=== PATIENT | male | born 1995 | race African-American/Black ===

== ENCOUNTER 2016-07-16 06:34 | Observation (INO) | payer OTHER ==
[2016-07-16] VITALS (8 sets, daily range): BP systolic 96–141; BP diastolic 51–70; PULSE 72–106; RESP 13–22; O2SAT 97–100
[~2016-07-16] VITALS: Ht 182.9 cm; Wt 64.9 kg
[~2016-07-16 06:34] MED LIST: KEP500TA PO
--- NOTE | 2016-07-16 07:02 | ED.REPORT ---
HPI-Seizure Date of Service Jul 16, 2016 ED Provider: Doc,Ed MD A 20 year old male with a history of seizures presents to the ED via EMS complaining of seizure onset earlier today. He only remembers waking up in the hospital bed looking up at 2 or 3 doctors and his parents. His last Last seizure was a few months ago. The patient was in a class all day Saturday, went out and had alcoholic drinks with friends Saturday night, and felt hung over on Saturday. He stopped taking his normal anti-seizure medication Lamictal 2 months ago. He does not have a neurologist. His PCP is Corey Keith. Nursing Notes Stated Complaint: SEIZURE Chief Complaint: Seizure Nursing Notes Reviewed: Yes Allergies: Coded Allergies: No Known Allergies (Verified , 07/16/16) Scheduled Levetiracetam (Keppra) 500 Mg Tablet 500 MG PO BID General Time Seen by Provider: 07:09 Chief Complaint Chief Complaint: Seizure, generalized Past Medical History Past Medical History Previous hospitalization for altered mental status History of seizures Family History Noncontributory Smoking History Light Tobacco Smoker Social History Alcohol Use: "Social" Drug Use: Cocaine, THC Other Social History: Good social support, Lives with parents, Local resident Ambulatory Status Independent Review of Systems Review of Systems Note: no recent fever. ETOH sat pm, hungover/headache saturday Complete sys rev & neg: except as marked. Physical Exam Initial Vital Signs Vital Signs (First) Date Time Temp Pulse Resp B/P Pulse Ox O2 Delivery O2 Flow Rate FiO2 07/16/16 06:41 36.7 106 18 141/70 98 Room Air Initial VS: Reviewed Head / Eyes: Atraumatic, Normocephalic, PERRL (midposition) ENT: Mucous membranes moist, Conjunctiva normal Abdomen / GI: Soft, Non-tender, No guarding, No rebound Back: No CVA tenderness Lymphatic: No lymphadenopathy Extremities: Vascular intact, Neuro intact (post ictal and improving rapidly. complaining of headache) Skin: Warm, Dry, No cyanosis Neurologic: Speech NL, No motor deficits, No sensory deficits, CN II - XII intact (hyper reflexic) Mental Status: Positive: Confused (regarding events, clearing during our discussion ) Interpretation & Diagnostics Interpretation & Diagnostics: utox: +THC only Lab Results Interpretation Result Diagram: 07/16/16 0710 07/16/16 0710 Test 07/16/16 07:10 07/16/16 12:15 White Blood Count 10.3th/mm3 (3.8-10.1) Red Blood Count 5.30mil/mm3 (4.40-5.80) Hemoglobin 15.0g/dL (13.8-17.2) Hematocrit 45.6% (41.0-50.0) Mean Corpuscular Volume 86.0fL (81-100) Mean Corpuscular Hemoglobin 28.3pg (27.0-35.0) Mean Corpuscular Hemoglobin Concent 32.9% (32.0-37.0) Red Cell Distribution Width 12.3% (12.3-15.4) Platelet Count 332bil/L (150-400) Neutrophils (%) (Auto) 51.7% (40-74) Lymphocytes (%) (Auto) 39.1% (14-46) Monocytes (%) (Auto) 7.8% (4-12) Eosinophils (%) (Auto) 0.7% (0-5) Basophils (%) (Auto) 0.4% (0-3) Sodium Level 133mEq/L (134-144) Potassium Level 4.1mEq/L (3.5-5.2) Chloride Level 93mEq/L (97-108) Carbon Dioxide Level 14mmol/L (18-29) Blood Urea Nitrogen 16mg/dL (6-20) Creatinine 1.00mg/dL (0.76-1.27) Estimat Glomerular Filtration Rate 100mL/min (>59) Glucose Level 156mg/dL (60-99) Calcium Level 8.9mg/dL (8.5-10.1) Magnesium Level 2.1mg/dL (1.6-2.6) Total Bilirubin 0.3mg/dL (0.0-1.2) Aspartate Amino Transf (AST/SGOT) 29U/L (0-50) Alanine Aminotransferase (ALT/SGPT) 21U/L (0-44) Alkaline Phosphatase 74U/L (25-150) Total Protein 8.0g/dL (6.4-8.4) Albumin 4.8g/dL (3.4-5.0) Urine Color Straw (YELLOW) Urine Appearance Hazy (CLEAR,HAZY) Urine pH 5.5 (5.0-8.0) Urine Specific [place] 1.030 (1.003-1.035) Urine Protein Negativemg/dL (NEG,TRACE) Urine Glucose (UA) Negativemg/dL (NEGATIVE) Urine Ketones Negativemg/dL (NEGATIVE) Urine Occult Blood Trace (NEGATIVE) Urine Nitrite Negative (NEGATIVE) Urine Bilirubin Negative (NEGATIVE) Urine Urobilinogen Normalmg/dL (NORMAL) Urine Leukocyte Esterase Negative (NEGATIVE) Urine RBC 0-2/hpf (0-2) Urine WBC 0-5/hpf (0-5) Urine Epithelial Cells Occasional/hpf (NONE-MOD) Urine Crystals Uric acid crystals (NONE Urine Bacteria Few/hpf (NONE-FEW) Urine Hyaline Casts Occasional/lpf (NONE) Urine Granular Casts Occasional (NONE SEEN) Urine Waxy Casts None seen (NONE SEEN) Urine Red Blood Cell Casts None seen (NONE SEEN) Urine White Blood Cell Casts None seen (NONE SEEN) Urine Mucus Present (None Seen) Urine Trichomonas None seen (NONE SEEN) Urine Yeast None (NONE SEEN) Urinalysis Comment None Urine Culture Reflexed Not indicated Hold Urine Received (Received) Lab Results Interpretation: Brain CT and MRI were unremarkable in March 2016 Re-Eval/Medical Decision Med Decision/Clinical Course 20-year-old gentleman presents with seizure this morning. Last seizure was in March and that admitted to the hospital ICU intubated. He was eventually discharged home on Lamictal. This was to have follow-up EEG scheduled but has not yet heard from neurology clinic. Stopped his seizure medications about 2 months ago. Has been doing well until this morning when he had a repeat seizure. Of note he did have an evening of drinking Saturday night had a slight headache Saturday seizure was Saturday morning. Similar to initial presentation. Second seizure in the emergency department about 2 and half hours after arrival. Second seizure responded nicely to 2 mg of IV Ativan and he was loaded with 1500mg IV Keppra. Admitted to the hospital for additional observation to ensure that he has not have repeat seizures. 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 Talked about importance of avoiding jobs where he could get hurt while having the seizure and likely need for avoiding driving for 6 months after this event Source of Hx: Old records Re-Evaluation/Progress #1: Time of Eval: 09:27 Re-Evaluation/Progress Note: Patient had another seizure which lasted 3 minutes. Seizure was general tonic clonic with eyes deviated upward and to the right. 2 mg of IV Ativan were administered. Patient is somulent. Re-Evaluation/Progress #2: Time of Eval: 12:12 Re-Evaluation/Progress Note: Rechecked patient. Talked with patient's mother who reports that son is recently clean from drug use and is looking for union construction employment. Explained that he will probably need to seek less physically demanding work. Explained diagnosis and plan for [place] [facility] [place] Counseled Regarding: Diagnosis, Lab results, Need for admission Discharge & Departure Impression: Primary Impression: Seizures Disposition: ADMITTED TO HOSPITAL Discharge Condition Condition: Improved Referrals: Pop Enriquez DO (PCP) Crit Care Except Billable Proc Time Spent: 30-74 minutes Services Performed: Patient management by me (including managment of acute seizure), Time spent at bedside, Reviewing test results, Reviewing imaging, Discussing patient care, Documentation in record, Time with fam/surrogate Scribe Attestation Portions of this note were transcribed by Tuan Liu. I, Dr. Cody, personally performed the history, physical exam, and medical decision-making: I reviewed and confirmed the accuracy for the information in the transcribed note. Signed by: antwan Becker, 07/16/16 8700. copies to: Pop Enriquez Shawna L MD Jul 16, 2016 07:02 Tuan Liu Jul 16, 2016 07:09
[2016-07-16 07:14] LABS: BASOPHILS % (AUTO) 0.4 % (0-3); EOSINOPHILS % (AUTO) 0.7 % (0-5); MONOCYTES % (AUTO) 7.8 % (4-12); Mean Corpuscular Hemoglobin 28.3 pg (27.0-35.0); NEUTROPHILS % (AUTO) 51.7 % (40-74); Platelet Count 332 bil/L (150-400)
[2016-07-16] MEDS ORDERED: 0.9% Sodium Chloride 1,000 ML IV ONE (07:55)
[2016-07-16] MEDS ORDERED: Ondansetron 2 mg/mL 2 mL Inj IVPUSH ONE (07:55)
[2016-07-16] MEDS ORDERED: levETIRAcetam Inj 1,500 MG in Dextrose 5% 100 ML IV ONE ×2 (10:05→20:30)
[2016-07-16] MEDS ORDERED: Alum-Mag Hydrox-Simeth 30 mL Suspension PO PRN (13:15)
[2016-07-16] MEDS ORDERED: Ondansetron 2 mg/mL 2 mL Inj IVPUSH PRN (13:15)
[2016-07-16] MEDS ORDERED: Polyethylene Glycol (PEG) 17 Gm Powder PO PRN (13:15)
[2016-07-16 13:58] LABS: COLOR,URINE STRAW (YELLOW)
[2016-07-16 13:59] LABS: APPEARANCE,URINE HAZY (CLEAR,HAZY); OCCULT BLOOD,URINE TRACE (NEGATIVE); PH,URINE 5.5 (5.0-8.0); UROBILINOGEN,URINE NORMAL (NORMAL)
[2016-07-16] MEDS: 0.9% Sodium Chloride 1,000 ML IV SCH ×2 (15:15→23:33)
--- NOTE | 2016-07-16 16:30 | NUR ---
ADMIT Report received from Katie Macdonald RN in ED. Pt brought onto floor via gurney. Unable to transfer - slide to bed. Pt very tired and sleepy from Ativan dosage in ED. Pt oriented to unit, room, and call light. MED REC and multiple interventions completed by Admit nurse. Final interventions completed. IV Fluids started as ordered. Mother at bedside, belongings at bedside or in closet with waiver signed.
--- NOTE | 2016-07-16 16:55 | DRSVH ---
PROCEDURE: CT BRAIN WITHOUT CONTRAST ([id number]) INDICATIONS: seizures TECHNIQUE: Noncontrast 4.5 mm thick angled axial sections acquired from the foramen magnum to the vertex, with c oronal reformats. COMPARISON: [facility], CT, CT BRAIN WO CON, 04/04/2016, 13:42. [facility], CT, BRAIN W/O CONTRAST, 11/19/2012, 9:03. FINDINGS: Image quality: Excellent. CSF spaces: Basal cisterns are patent. No extra-axial fluid collections. Ventricles are normal in size and shape. Brain: No midline shift. No intracranial masses or hemorrhage. Walter-white matter interface is norm al. Skull and face: Calvarium and visualized facial bones are intact, without suspicious lesions. Sinuses: An incompletely visualized right maxillary sinus retention cyst is present. Visualized sinus es and mastoids are otherwise clear. IMPRESSION: No acute intracranial abnormality. No explanation for seizures. Dictated by: Ryan Hall M.D. on 07/16/2016 at 16:52 Approved by: Ryan Hall M.D. on 07/16/2016 at 16:53
--- NOTE | 2016-07-16 17:11 | PCM.HPMED ---
Subjective Date of Service Jul 16, 2016 Primary Provider: Admitting Physician: Danish Chavez DO Primary Care Physician: Pop Enriquez DO Attending Physician: Danish Chavez DO Admit Status: From the Emergency Department, Admit to [facility]hele Team Chief Complaint: "seizure" History of Present Illness: History is primarily provided by the patient's mother, Yina, as patient is somnolent during interview. George Sauceda is a 20-year-old male with history of seizures who presented to the emergency department via EMS for a seizure that started around 6:00 this morning. His mother reports hearing a thump on the floor, and at that point her , the patient's stepfather, went upstairs and found the patient lying on the floor with his whole-body "twitching." He was stuck between the wall and the door. His head was bouncing back and forth between the door and the wall. It lasted for approximately 3 minutes. His parents then called 911. In the emergency department and around 09:27 this morning, he had a witnessed seizure that was described as a general tonic-clonic seizure with eyes deviated upward and to the right. It lasted 3 minutes. 2 mg of IV Ativan were administered. Prior to today, patient's mother reports that his last seizure was in March 2016. She reports that he had imaging of his brain, which was unremarkable. He was started on Keppra 500 mg by mouth twice a day by a physician in his primary care provider's office. It was prescribed in April 2016. His mother reports that he has not been taking it for the past 2 months because the prescription bottle is mostly full and has not been refilled. She states that in April 2016 he had a headache and was anxious and felt like he was going to have a seizure, and on that day, he took the Keppra but did not have a seizure. She states that previously the patient was using cocaine and liquid marijuana during the time of his first seizure. 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 The patient went out drinking alcohol with friends Saturday and Saturday night. On Saturday morning , he woke up with a headache that he described as pounding. He thought that he was hungry over. He vomited once at home and once in the emergency department today. No known sick contacts. He has not been coughing or had diarrhea. Patient denies having any headache or being in any pain currently. He is somnolent and repeatedly falls asleep during interview. Review of Systems: A comprehensive review of systems was limited due to patient currently being somnolent. Allergies Coded Allergies: No Known Allergies (Verified , 07/16/16) Home Medications Keppra 500 mg by mouth twice a day PMH History of seizures Patient is up-to-date on childhood immunizations. Surgical History Left knee injury repair Right fifth and fourth metacarpal fracture repair Family History Father has multiple sclerosis Mother has high blood pressure Paternal grandmother from a brain aneurysm 2 sisters both in good health Social History Hx Alcohol Use: Yes (Occasionally) Hx Substance Use: Yes (Quit marijuana and cocaine 2 months ago) Hx Tobacco Use: Yes Smoking Status: Light Tobacco Smoker (pt's mother reports that he quit) Living Arrangement: with Family Exam Vital Signs Vital Sign - Last Date Time Temp Pulse Resp B/P Pulse Ox O2 Delivery O2 Flow Rate FiO2 07/16/16 15:03 36.4 77 18 112/62 99 Room Air Exam General: Somnolent, no acute distress, well-developed, well-nourished HEENT: Normocephalic, atraumatic. External ears without defect. Pupils equal, round, and reactive to light and accommodation. Anicteric sclerae, moist conjunctivae, and no lid lag. Oropharynx free of erythema and cobble stoning with moist mucosa. Neck: Supple with full range of motion. No jugular venous distension. No bruits. No lymphadenopathy or thyromegaly. Cardiovascular: Regular rate and rhythm with no murmurs, rubs, or gallops appreciated Pulmonary: Clear to auscultation bilaterally with no crackles, wheezes, or rhonchi. Normal respiratory effort with no use of accessory muscles. Abdomen: Bowel tones present. Soft, nontender, nondistended. No hepatosplenomegaly or masses appreciated. Extremities: No clubbing, cyanosis, edema, or lymphadenopathy appreciated. Skin: Normal temperature, turgor, and texture; no rash, ulcers, or subcutaneous nodules appreciated. Neurological: Opens eyes to verbal stimuli, follows commands, moving all 4 extremities equally, no tremor. Psychiatric: Somnolent. Lab and Diagnostics Result Diagram: 07/16/16 0710 07/16/16 0710 X-Rays, CTs and MRIs PROCEDURE: CT BRAIN WITHOUT CONTRAST IMPRESSION: No acute intracranial abnormality. No explanation for seizures. Approved by: Ryan Hall M.D. on 07/16/2016 at 16:53 Assessment & Plan George Sauceda is a 20-year-old male with history of seizures who presented to the emergency department via EMS for a seizure that started around 6:00 this morning 1. Probable seizure disorder, acute on chronic, present on admission. Active. - Previously hospitalized in March 2016 for possible seizure disorder but patient was using cocaine and THC oils at the time. His mother reports that the patient has stopped using THC oils and cocaine since the end of April 2016. EEG in April 2016 showed normal awake and sleep EEG pattern. Patient was started on 500 mg Keppra twice a day. His mother reports poor compliance with this medication, and his prescription bottle is nearly full and has not been refilled since April 2016. WBC elevated likely secondary to recent seizure activity. Patient is afebrile. - Urine tox in the emergency department was positive for THC and negative for cocaine. - Brain CT without contrast shows no acute intracranial hemorrhage. - Discuss patient with Dr. Galan, neurology, and she will try to see him tomorrow in the hospital and she recommended starting patient on 1500 mg Keppra BID and to repeat EEG. Her time and recommendations are appreciated. - Start Keppra 1500 mg IV BID - Repeat EEG ordered for tomorrow morning - Monitor for signs of infection Acetaminophen as needed for pain. Senna and MiraLAX as needed for constipation. Zofran as needed for nausea and vomiting. VTE Prophylaxis: Sub-Q Heparin (Unfractionated), SCDs Resuscitation Status: CPR: Attempt Resuscitation Time spent 45 minutes Attending Statement I have seen and evaluated patient at bedside in addition to directly supervising care provided by resident physician. I agree with above documentation. Alma Basurto DO Jul 16, 2016 16:16 Danish Chavez DO Jul 17, 2016 08:22
[2016-07-16] MEDS: Heparin 5,000 Unit/mL Inj SUBQ SCH (19:56)
[2016-07-16] MEDS ORDERED: levETIRAcetam 500 mg Tablet PO SCH (20:30)
--- NOTE | 2016-07-17 05:03 | NUR ---
Uneventful Pt denies seizure episodes. Keppra administered IV. Denies n/v or abd discomfort. Denies chest pain or sob. Telemetry reports no obvious change in rhythm. Seizure pads per Sz protocol. Hourly rounding done and pt has slept most of the night.
[2016-07-17 05:21] VITALS: BP 112/58; PULSE 78; RESP 18; O2SAT 96
[2016-07-17 06:14] LABS: BASOPHILS % (AUTO) 0.2 % (0-3); EOSINOPHILS % (AUTO) 0.3 % (0-5); Mean Corpuscular Hemoglobin 28.3 pg (27.0-35.0); Mean Corpuscular Volume 85.4 fL (81-100); NEUTROPHILS % (AUTO) 54.6 % (40-74); Platelet Count 253 bil/L (150-400)
[2016-07-17] MEDS: Heparin 5,000 Unit/mL Inj SUBQ SCH (08:30)
[2016-07-17] MEDS ORDERED: levETIRAcetam Inj 1,500 MG in Dextrose 5% 100 ML IV SCH (10:15)
[2016-07-17] MEDS: 0.9% Sodium Chloride 1,000 ML IV SCH (10:28)
[2016-07-17 10:45] VITALS: PULSE 63
--- NOTE | 2016-07-17 12:05 | PROCED ---
[address] [address] EEG PATIENT: GARRET AHUMADA : 1995 MR#: [id number] ADMIT: 07/16/2016 JOB ID: [id number] DATE OF SERVICE: 07/17/2016 REQUESTING PHYSICIAN: Dr. Alma Basurto CLINICAL HISTORY: The patient is a 20-year-old gentleman with history of epilepsy not on antiepileptic medication prior to admission. Now on levetiracetam 1500 mg b.i.d. TECHNICAL DESCRIPTION: This digital EEG was reviewed in bipolar and referential montages following reformatting in the [employer] System. DESCRIPTION: While awake and with eyes closed, there are 10 hertz rhythmic and symmetric waveforms seen over the occipital head region which attenuate with eye opening. The patient enters sleep at which time there is slowing of the background rhythm with the appropriate sleep architecture noted in both hemispheres. Throughout the recording there is left temporal slowing noted intermittently without electrophysiologic seizures noted. IMPRESSION: Abnormal EEG due to left temporal slowing patient awake and asleep. The left temporal slowing may represent a seizure focus. No electrophysiologic seizures are noted throughout this recording. Clinical correlation advised.
--- NOTE | 2016-07-17 13:40 | CONS ---
[address] [address] CONSULTATION REPORT PATIENT: GARRET AHUMADA : 1995 MR#: [id number] ADMIT: 07/16/2016 JOB ID: [id number] DATE OF SERVICE: 07/17/2016 REQUESTING PHYSICIAN: Dr. Alma Basurto for multiple seizures with prolonged postictal state. HISTORY OF PRESENT ILLNESS: The patient is a 20-year-old gentleman, known to me due to history of seizures. He was 1st diagnosed with seizures last fall, at which time, an EEG was requested and recommendations provided by phone regarding new-onset seizures. According to the history that is seen in the charts as well as the patient's mother's report, he had febrile seizures as an infant, when he was approximately age [age], which resulted in a head injury but no known seizures since then. In March 2016, seizures began after the patient admittedly used cocaine. The patient also had been recently bingeing on alcohol with friends. During that hospitalization, the patient started levetiracetam after an EEG was normal, but witnessed seizures were seen. He continued on levetiracetam until approximately two months ago, when his mother states that he stopped taking it. He advises me that when he stopped taking the medication, he did not have any seizures so did not think he needed to continue it. This weekend he admits to drinking alcohol. His mother, Yina, tells me that he was drinking excessively on at least two nights. She recalls waking up to hear him bouncing against a door in his bedroom. His sister had to slide in between the space in the door and the wall in order to attend to him. 911 was called. She believes the seizure lasted for less than 3 minutes. He was administered 2 mg of Ativan in the field. According to notes, the patient thought he was controlling his seizures with marijuana but stopped marijuana in anticipation of drug testing for a new job. This was not discussed with the patient but noted in the chart notes. He denies any recall of the events that occurred. A second seizure occurred in the emergency department for which the patient received additional 2 mg of Ativan and was loaded with 1500 mg of IV Keppra. I was called by Dr. Basurto to discuss next steps. I recommended an EEG which I read earlier and shows a possible left temporal slowing, suggesting of seizure focus. CT scan, done on June 18, 2016, showed no acute findings. There is no MRI to review. Laboratory studies showed elevated white count which resolved, elevated glucose which remains high but much lower than the initial 156. UA negative. U-tox screen in the emergency department was positive for THC. The patient now is alert and oriented although he was admittedly somnolent yesterday. He is now ready to go home. He is tolerating the levetiracetam 1500 mg b.i.d. without side effects or problems. He states that he feels otherwise well. PAST MEDICAL HISTORY: History of febrile seizures and prior seizures. No known head injury or meningitis. FAMILY HISTORY: No history of epilepsy. Father has MS. Mother has hypertension. Paternal grandfather with a brain aneurysm. SOCIAL HISTORY: Occasional alcohol. No marijuana currently. Questionable smoking status. DRUG ALLERGIES: No known drug allergies. MEDICATIONS: No home medications, levetiracetam as above. PHYSICAL EXAMINATION: He is resting comfortably in the hospital bed. Blood pressure is 112/56 with heart rate 78, afebrile, respiratory rate 18, pulse oximetry 96% on room air. Head: Normocephalic, atraumatic. Tongue lacerations present on both sides. Lungs: Clear to auscultation bilaterally. Cardiac: Regular rate and rhythm. S1, S2 present. Lower extremities: No edema or lesions. NEUROLOGIC EXAMINATION: Patient is alert and oriented x3, with language and speech intact and fluent. No evidence of memory impairment. Recent memory, fund of knowledge evaluated and found to be intact. Mood is euthymic. Cranial nerves: Pupils equally reactive to light and accommodation. Extraocular movements intact. No facial asymmetry. Sensation intact on the face bilaterally. Tongue midline. Palate raises symmetrically. SCM and shoulder shrug, as well as hearing appear to be intact bilaterally. Motor strength intact upper and lower extremity without atrophy or extra movement. Deep tendon reflexes: 2+ throughout symmetrically. Tone: Intact throughout Sensation: intact, upper and lower extremities to touch, pinprick, vibration. Coordination: Intact [id number], [id number], rapidly alternating movement. Gait, observed by nursing staff: The patient can walk without assistance. No ataxia. LABORATORIES AND IMAGING STUDIES: As above. ASSESSMENT AND RECOMMENDATIONS: Patient is a 20-year-old gentleman with history of febrile seizures and seizures. He has now had several seizures since March. This qualifies him for epilepsy. He was advised that he should remain on antiepileptic medication. I advised no driving until the patient is at least seen by me to assure that he is compliant with epilepsy medication. Information on epilepsy, management of seizures, and recommendations regarding abstinence from alcohol and illicit drugs was provided to the patient and his mother at the bedside. If okay from a Medicine standpoint, the patient is acceptable to discharge home. He should be advised that if there are recurrent seizures or multiple seizures, urgent re-evaluation is recommended. I will set up an appointment for him to be seen in the clinic in the next six weeks to two months. Thank you for this consultation. Please call if needed. CLAYTON
[2016-07-17] MEDS ORDERED: KEP500TA PO (13:48)
--- NOTE | 2016-07-17 13:56 | PCM.DIMED ---
Alma Basurto DO 07/17/16 1355: Discharge Instructions Date of Service Jul 17, 2016 Dates of Hospitalization Jul 16, 2016 at 12:54 Discharge Diagnosis Discharge Diagnosis 1. Seizure disorder Diet No restrictions Activity Other (We recommend that you do not drive until seen by neurology) Patient Instructions Start taking Keppra 1,500 mg twice per day every day. Do not take with alcohol or other drugs. The prescription has been sent by Dr. Galan. We recommend that you do not drive until you have been evaluated further by neurology to ensure compliance with epilepsy medication. Follow up with Dr. Galan in 6-8 weeks. Her office will contact you with an appointment time. Follow up with your primary care provider in 1 week. Return to the hospital if you experience any seizure activity. Follow-up Provider: Pop Enriquez DO Follow-up with PCP in: 1 week Provider: Cheryl Galan MD Follow-up in: 6 weeks (Her office will contact you with an appointment time.) Danish Chavez DO 07/18/16 0749: Discharge Instructions Attending's Statement Read and agree Alma Basurto DO Jul 17, 2016 13:55 Danish Chavez DO Jul 18, 2016 07:49
--- NOTE | 2016-07-17 14:23 | NUR ---
Discharge Reviewed discharge paperwork, care notes and medications with waiver signed. IV DCd intact, all belongings with pt. Pt requests to walk out on foot with mother, mother driving home. No s/sx of distress, VSS, steady and strong on feet.
--- NOTE | 2016-07-17 14:57 | NUR ---
Social Work Note - Screening/Discharge: D/A: The Pt is a 20 y/o male that was admitted under observation status for seizure x2. The Pt is lives independently with his family in [place]. SW met with the Pt, wrote telephone number on white board. SW inquired about Advanced Directive, Pt reports that he does not have one. Copy given. SW also inquired about community resources, the PT denies utilization of community resources. The Pt denies any needs at this time. Neurology consult completed, recommending discharge home with Ot[facility] clinic appointment in the next six weeks to two months. The Pt denies any other needs at this time. P: The Pt to discharge home today with family providing POV transportation. Neurology consult completed, recommending discharge home with [facility] clinic appointment in the next six weeks to two months. The Pt denies any other needs at this time. Deneen Grier, SIDE [employer] Deputy County Attorney ANDREW Garcia
--- NOTE | 2016-07-17 15:48 | PCM.DC.MED ---
Discharge Summary Date of Service Jul 17, 2016 Dates of Hospitalization Date of Hospital Admission Jul 16, 2016 at 12:54 Date of Discharge: Jul 17, 2016 Providers: Admitting Physician: Danish Chavez DO Primary Care Physician: Pop Enriquez DO Attending Physician: Danish Chavez DO Diagnosis at Time of Discharge Diagnosis at Time of Discharge 1. Seizure disorder Procedures XRay, CTs & MRIs PROCEDURE: CT BRAIN WITHOUT CONTRAST IMPRESSION: No acute intracranial abnormality. No explanation for seizures. Approved by: Ryan Hall M.D. on 07/16/2016 at 16:53 Other Diagnostics EEG IMPRESSION: Abnormal EEG due to left temporal slowing patient awake and asleep. The left temporal slowing may represent a seizure focus. No electrophysiologic seizures are noted throughout this recording. Clinical correlation advised. Cheryl Galan MD 07/17/16 1141 Brief History From the history and physical by Dr. Alma Basurto on 07/16/2016: History is primarily provided by the patient's mother, Yina, as patient is somnolent during interview. George Sauceda is a 20-year-old male with history of seizures who presented to the emergency department via EMS for a seizure that started around 6:00 this morning. His mother reports hearing a thump on the floor, and at that point her , the patient's stepfather, went upstairs and found the patient lying on the floor with his whole-body "twitching." He was stuck between the wall and the door. His head was bouncing back and forth between the door and the wall. It lasted for approximately 3 minutes. His parents then called 911. In the emergency department and around 09:27 this morning, he had a witnessed seizure that was described as a general tonic-clonic seizure with eyes deviated upward and to the right. It lasted 3 minutes. 2 mg of IV Ativan were administered. Prior to today, patient's mother reports that his last seizure was in March 2016. She reports that he had imaging of his brain, which was unremarkable. He was started on Keppra 500 mg by mouth twice a day by a physician in his primary care provider's office. It was prescribed in April 2016. His mother reports that he has not been taking it for the past 2 months because the prescription bottle is mostly full and has not been refilled. She states that in April 2016 he had a headache and was anxious and felt like he was going to have a seizure, and on that day, he took the Keppra but did not have a seizure. She states that previously the patient was using cocaine and liquid marijuana during the time of his first seizure. 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 The patient went out drinking alcohol with friends Saturday and Saturday night. On Saturday morning , he woke up with a headache that he described as pounding. He thought that he was hungry over. He vomited once at home and once in the emergency department today. No known sick contacts. He has not been coughing or had diarrhea. Patient denies having any headache or being in any pain currently. He is somnolent and repeatedly falls asleep during interview. Hospital Course George Sauceda is a 20-year-old male with history of seizures who presented to the emergency department via EMS for a seizure that started around 6:00 this morning 1. Probable seizure disorder, acute on chronic, present on admission. Active. - Previously hospitalized in March 2016 for possible seizure disorder but patient was using cocaine and THC oils at the time. His mother reports that the patient has stopped using THC oils and cocaine since the end of April 2016. EEG in April 2016 showed normal awake and sleep EEG pattern. Patient was started on 500 mg Keppra twice a day. His mother reports poor compliance with this medication, and his prescription bottle is nearly full and has not been refilled since April 2016. WBC initially elevated likely secondary to recent seizure activity. Patient was afebrile and WBC improved to within normal limits. - Urine tox in the emergency department was positive for THC and negative for cocaine. - Brain CT without contrast showed no acute intracranial hemorrhage - EEG showed left temporal slowing that may represent a seizure focus. - Dr. Galan, neurology, consulted and she recommended continuing patient on 1500 mg Keppra BID and following up with her in 6-8 weeks. She may order an MRI at that point in time. Her time and recommendations were appreciated. Exam Vital Signs (Last) Date Time Temp Pulse Resp B/P Pulse Ox O2 Delivery O2 Flow Rate FiO2 07/17/16 10:45 63 07/17/16 05:21 36.4 18 112/58 96 Room Air Exam General: Awake, alert, and oriented to person, place, and time, no acute distress, well-developed, well-nourished HEENT: Normocephalic, atraumatic. External ears without defect. Pupils equal, round, and reactive to light and accommodation. Anicteric sclerae, moist conjunctivae, and no lid lag. Oropharynx free of erythema and cobble stoning with moist mucosa. Neck: Supple with full range of motion. No jugular venous distension. No bruits. No lymphadenopathy or thyromegaly. Cardiovascular: Regular rate and rhythm with no murmurs, rubs, or gallops appreciated Pulmonary: Clear to auscultation bilaterally with no crackles, wheezes, or rhonchi. Normal respiratory effort with no use of accessory muscles. Abdomen: Bowel tones present. Soft, nontender, nondistended. No hepatosplenomegaly or masses appreciated. Extremities: No clubbing, cyanosis, edema, or lymphadenopathy appreciated. Skin: Normal temperature, turgor, and texture; no rash, ulcers, or subcutaneous nodules appreciated. Neurological: Cranial nerves grossly intact. Normal muscle strength, tone, and bulk. Reflexes, coordination, and sensory function within normal limits. No known gait impairment. Psychiatric: Normal mood and affect. Alert and oriented to person, place, and time. Test 07/16/16 07:10 07/16/16 12:15 07/17/16 05:40 Magnesium Level 2.1mg/dL (1.6-2.6) Total Bilirubin 0.3mg/dL (0.0-1.2) Aspartate Amino Transf (AST/SGOT) 29U/L (0-50) Alanine Aminotransferase (ALT/SGPT) 21U/L (0-44) Alkaline Phosphatase 74U/L (25-150) Total Protein 8.0g/dL (6.4-8.4) Albumin 4.8g/dL (3.4-5.0) Urine Color Straw (YELLOW) Urine Appearance Hazy (CLEAR,HAZY) Urine pH 5.5 (5.0-8.0) Urine Specific [place] 1.030 (1.003-1.035) Urine Protein Negativemg/dL (NEG,TRACE) Urine Glucose (UA) Negativemg/dL (NEGATIVE) Urine Ketones Negativemg/dL (NEGATIVE) Urine Occult Blood Trace (NEGATIVE) Urine Nitrite Negative (NEGATIVE) Urine Bilirubin Negative (NEGATIVE) Urine Urobilinogen Normalmg/dL (NORMAL) Urine Leukocyte Esterase Negative (NEGATIVE) Urine RBC 0-2/hpf (0-2) Urine WBC 0-5/hpf (0-5) Urine Epithelial Cells Occasional/hpf (NONE-MOD) Urine Crystals Uric acid crystals (NONE Urine Bacteria Few/hpf (NONE-FEW) Urine Hyaline Casts Occasional/lpf (NONE) Urine Granular Casts Occasional (NONE SEEN) Urine Waxy Casts None seen (NONE SEEN) Urine Red Blood Cell Casts None seen (NONE SEEN) Urine White Blood Cell Casts None seen (NONE SEEN) Urine Mucus Present (None Seen) Urine Trichomonas None seen (NONE SEEN) Urine Yeast None (NONE SEEN) Urinalysis Comment None Urine Culture Reflexed Not indicated Hold Urine Received (Received) White Blood Count 6.1th/mm3 (3.8-10.1) Red Blood Count 4.59mil/mm3 (4.40-5.80) Hemoglobin 13.0g/dL (13.8-17.2) Hematocrit 39.2% (41.0-50.0) Mean Corpuscular Volume 85.4fL (81-100) Mean Corpuscular Hemoglobin 28.3pg (27.0-35.0) Mean Corpuscular Hemoglobin Concent 33.2% (32.0-37.0) Red Cell Distribution Width 12.1% (12.3-15.4) Platelet Count 253bil/L (150-400) Neutrophils (%) (Auto) 54.6% (40-74) Lymphocytes (%) (Auto) 35.7% (14-46) Monocytes (%) (Auto) 9.0% (4-12) Eosinophils (%) (Auto) 0.3% (0-5) Basophils (%) (Auto) 0.2% (0-3) Sodium Level 136mEq/L (134-144) Potassium Level 3.8mEq/L (3.5-5.2) Chloride Level 100mEq/L (97-108) Carbon Dioxide Level 23mmol/L (18-29) Blood Urea Nitrogen 10mg/dL (6-20) Creatinine 0.86mg/dL (0.76-1.27) Estimat Glomerular Filtration Rate 119mL/min (>59) Glucose Level 111mg/dL (60-99) Calcium Level 8.7mg/dL (8.5-10.1) Discharge Medications Discharge Medications Levetiracetam (Keppra) 500 Mg Tablet 1,500 MG PO BID Prescribed by: ALMA BASURTO DO Followup Plan Discharge Diet: No restrictions Discharge Activity: Other (We recommend that you do not drive until seen by neurology) Patient Instructions Start taking Keppra 1,500 mg twice per day every day. Do not take with alcohol or other drugs. The prescription has been sent by Dr. Galan. We recommend that you do not drive until you have been evaluated further by neurology to ensure compliance with epilepsy medication. Follow up with Dr. Galan in 6-8 weeks. Her office will contact you with an appointment time. Follow up with your primary care provider in 1 week. Return to the hospital if you experience any seizure activity. Follow-up Provider: Pop Enriquez DO Follow-up with PCP in: 1 week Provider: Cheryl Galan MD Follow-up in: 6 weeks (Her office will contact you with an appointment time.) Time spent 35 minutes Attending Statement I have seen and evaluated patient at bedside in addition to directly supervising care provided by resident physician. I agree with above documentation. copies to: Cheryl Galan MD; Pop Enriquez Marissa L DO Jul 17, 2016 15:48 Danish Chavez DO Jul 18, 2016 08:00
== END 2016-07-17 14:25 | disposition home or self-care (01) ==
LOC: EDBD 06:34 → SED 06:34 → MPC 12:54
PROVIDERS: ADMIT Family Medicine; ATTEND Family Medicine
DX: G40.909 Epilepsy, unspecified, not intractable, without status epilepticus (principal); F17.210 Nicotine dependence, cigarettes, uncomplicated; F12.10 Cannabis abuse, uncomplicated; F14.10 Cocaine abuse, uncomplicated; Z79.899 Other long term (current) drug therapy
CPT/HCPCS: 36415; 70450; 80048; 80053; 81000; 81002; 82948; 83735; 85025; 95816; 96361; 96374; 96375; 99291; G0378; J1644; J1953; J2060; J2405; J7030